=== PATIENT | male | born 1960 | race Caucasian/White ===

== ENCOUNTER → 2021-10-29 | Outpatient (CLI) | payer OTHER ==
--- NOTE | 2021-10-29 11:03 | XR ---
EXAM TYPE: LUMBAR SPINE X RAY SERIES COMPARISON: NONE HISTORY: Pain TECHNIQUE: 4 views are submitted. FINDINGS: Alignment is anatomic. The pedicles are intact. The transverse processes are intact. There is no s pondylolysis or spondylolisthesis. Diffuse osteopenia. There is multilevel degenerative disc disease with severe changes L4-5 and L5-S1 with facet arthropathy. IMPRESSION: 1. Severe degenerative disc disease L4-5 and L5-S1 with facet arthropathy and suspected bilateral for aminal encroachment..
== END | disposition home or self-care (01) ==
LOC: RADXRMAIN 10:31
PROVIDERS: ATTEND Physician Assistant
DX: M51.37 Other intervertebral disc degeneration, lumbosacral region (principal); M85.88 Other specified disorders of bone density and structure, other site
CPT/HCPCS: 72100

== ENCOUNTER → 2021-12-24 | Outpatient (CLI) | payer OTHER ==
--- NOTE | 2021-12-24 15:45 | NM ---
EXAMINATION TYPE: NM bone scan whole body DATE OF EXAM: 12/24/2021 COMPARISON: Lumbar spine x-ray 10/29/2021 HISTORY: Back pain Delayed whole-body scanning was performed following the injection of 22.1 mCi Tc 99m MDP. Images acq uired 3 hours post injection. FINDINGS: There is intense abnormal uptake involving the mid thoracic spine. Faint uptake seen throughout the thoracic and lower lumbar spine. Mild uptake involving the feet, ankles, knees, and shoulders and sternoclavicular joints. IMPRESSION: 1. Nonspecific intense abnormal linear uptake midthoracic spine correlate for compression fracture. X -ray correlation recommended. 2. Nonspecific uptake involving the remaining vertebral column likely degenerative. Findings involvin g the lower lumbar spine appear to correspond to degenerative disc disease on x-ray 10/29/2021.
== END | disposition home or self-care (01) ==
LOC: RADNMMAIN 10:49
PROVIDERS: ATTEND Physical Medicine & Rehabilitation
DX: M47.817 Spondylosis without myelopathy or radiculopathy, lumbosacral region (principal); S32.030A Wedge compression fracture of third lumbar vertebra, initial encounter for closed fracture; M51.37 Other intervertebral disc degeneration, lumbosacral region
CPT/HCPCS: 78306; A9503